=== PATIENT | female | born 1985 | race African-American/Black ===

== ENCOUNTER 2022-08-16 13:17 | Inpatient (IN) | payer OTHER, SELFPAY ==
[2022-08-16] VITALS (42 sets, daily range): BP systolic 121–152; BP diastolic 68–115; PULSE 76–115; RESP 16–18; TEMP 36.8–36.9; O2SAT 94–100; BMI 35.3
--- NOTE | ~2022-08-16 | US_ITS ---
EXAMINATION: US OB limited DATE: 08/16/2022 15:07 INDICATION: Prolapsed umbilical cord. TECHNIQUE: Real-time ultrasound of the pelvis was performed. COMPARISON: None. FINDINGS: There is a single fetus in breech presentation. The placenta is fundal and anterior. heart mot ion is not identified on M-mode Doppler. The amniotic fluid index is 0 cm. IMPRESSION: 1. demise. Reviewed, dictated and finalized at location A. TELEMETRY IMPRESSION: 1. demise.
--- NOTE | 2022-08-16 14:14 | ED.PREGNANCY ---
HPI - General Chief complaint: Vaginal Bleeding <Gali Harrison PA-C - Last Filed: 08/16/22 15:38> Stated complaint: 17 Weeks <Gali Harrison PA-C - Last Filed: 08/16/22 15:38> Time Seen by Provider: 08/16/22 13:41 <Gali Harrison PA-C - Last Filed: 08/16/22 15:38> History of Present Illness HPI Narrative: 36-year-old female reports for passing tissue through her vagina 2 hours ago. She is currently 17-1/2 weeks . Patient states she was going to the bathroom while at work and noticed that she had tissue hanging out of her vagina. She denies having any abdominal pain, cramping, vaginal bleeding, back pain, fever, headache, dizziness, vision changes. States that she was seen on August 11 by her OUTSIDE PARTS SALESMAN at [facility], had an ultrasound which confirmed IUP. States she has had no complications with this so far. No history of complications with previous pregnancies. All previous pregnancies were delivered vaginally at full-term. She is currently taking aspirin and a multivitamin. <Gali Harrison PA-C - Last Filed: 08/16/22 15:38> Related Data Home medications: Home Medications Medication Instructions Recorded Confirmed aspirin 81 mg chewable tablet 81 mg DAILY 08/16/22 08/16/22 vits 75-iron 28 mg-folic 1 pkg PO DAILY 08/16/22 08/16/22 acid 800 mcg-omega3 440 mg oral pack <Gali Harrison PA-C - Last Filed: 08/16/22 15:38> Allergies/Adverse reactions: Allergies Allergy/AdvReac Type Severity Reaction Status Date / Time Sulfa (Sulfonamide Allergy Unknown Unknown Verified 08/16/22 13:31 Antibiotics) <Gali Harrison PA-C - Last Filed: 08/16/22 15:38> Review of Systems Review of Systems: CONSTITUTIONAL: Denies fever, chills, or sweats. EYES: Denies visual changes CARDIOVASCULAR: Denies chest pain, palpitations, or edema. RESPIRATORY: Denies cough or dyspnea. GASTROINTESTINAL: Denies abdominal pain, nausea, vomiting, or diarrhea. GENITOURINARY: Denies dysuria or hematuria. See HPI. SKIN: Denies rash or itching. MUSCULOSKELETAL: Denies back pain, joint pain, or myalgia. NEUROLOGIC: Denies headache, numbness, dizziness, or weakness. <Gali Harrison PA-C - Last Filed: 08/16/22 15:38> PMFSH Social History Social History: Social History Smoking status: Never smoker Second hand tobacco smoke exposure: No Spiritual care concerns: No <Gali Harrison PA-C - Last Filed: 08/16/22 15:38> Exam Narrative: GENERAL: Well-appearing, well-nourished, and in no acute distress. Tearful on exam. HEAD: Normocephalic, atraumatic. NECK: Supple. CHEST: Clear to auscultation. No respiratory distress. No wheezes rales or rhonchi HEART: Regular rate and rhythm. No murmur heard. Normal peripheral pulses. ABDOMEN: Soft, nontender, nondistended, normal active bowel sounds. RESTAURANT HOURLY MANAGER: Visual inspection demonstrates ~2 inches of looped prolapsed umbilical cord extending from the vagina. No blood or other tissue visualized. EXTREMITIES: Normal range of motion. No edema. SKIN: Warm, dry, no rash. NEURO: Alert and oriented x3. PSYCH: Tearful <Gali Harrison PA-C - Last Filed: 08/16/22 15:38> Course Course Emergency Course: Case discussed with Dr. Littlejohn after initial history taken. Dr. Littlejohn and I visualized the prolapsed cord together and attempted to find heart tones with Doppler without success. Dr. Littlejohn performed a bedside ultrasound and did not see any heart movement. 1430: Called Dr. Dow and gave report on patient's case. She is going to come to the ED and speak with the patient. Advised me to order a formal ultrasound in the meantime. OB ultrasound ordered. <Gali Harrison PA-C - Last Filed: 08/16/22 15:38> MEDICAL RECORD TRANSCRIBER/PA Physician Supervision For this patient encounter, I reviewed the MEDICAL RECORD TRANSCRIBER or PA documentation, eliana
--- NOTE | 2022-08-16 15:24 | PM.IMHP ---
H&P: HPI History of Present Illness Date/Time: 08/16/22 15:24 Chief Complaint: Passing tissue Narrative: Patient is a at 17 weeks by EDC January 21. She presented to ED after noticing passing some tissue while at work today. Denies LOF. Denies contractions. She has had one visit in [place]. She has had prior term vaginal deliveries, denies h/o labor or cervical incompetence. Denies flu like symptoms, or fevers or chills. States has had increase discharge for a week. In ED cord was visualized in vagina. Bedside ultrasound done in ED and no cardiac activity detected. Formal ultrasound also confirmed IUFD. Review of Systems Review of Systems: All systems reviewed & are unremarkable except as noted in HPI and below Constitutional: Constitutional: Reports as per HPI Eyes: Eyes: Reports no additional eye complaints ENT: Reports system reviewed and no additional complaints, except as documented Cardiovascular: Cardiovascular: Reports no additional cardiovascular complaints Respiratory: Respiratory: Reports no additional respiratory complaints Gastrointestinal: Gastrointestinal: Reports no additional gastrointestinal complaints Genitourinary: Genitourinary: Reports no additional female genitourinary complaints Musculoskeletal: Musculoskeletal: Reports no additional musculoskeletal complaints Psychiatric: Psychiatric: Reports no additional psychiatric complaints Meds Home Medications and Allergies Allergies Allergy/AdvReac Type Severity Reaction Status Date / Time Sulfa (Sulfonamide Allergy Unknown Unknown Verified 08/16/22 13:31 Antibiotics) Vital Signs Vital Signs - 24 hr 08/16/22 13:22 Temperature 98.4 F Pulse Rate 115 H Respiratory Rate 16 Blood Pressure 152/88 H Pulse Oximetry 100 Exam Const: General: cooperative, alert and awake Orientation/consciousness: oriented to person, oriented to place and oriented to time HENMT: Head: normal to inspection Eyes: General: appearance normal, both eyes and all related structures Neck: Neck: normal visual inspection Resp: Effort & Inspection: normal respiratory effort Auscultation: clear to auscultation bilaterally Cardio: Rate: regular rate Rhythm: regular rhythm GI: Inspection: normal to inspection Other: fundus 4 below umbilicus nontender : External Female Exam: normal external appearance Speculum Exam - Vagina: normal appearance of the vagina and Abnormal introitus (cord in vagina) Speculum Exam - Cervix: Other cervical findings present (cervix visually approx 2 cm parts not palpable) Skin: General skin exam: normal color Assessment and Plan Assessment and plan (1) demise: Status: Acute Assessment and Plan: Inevitable miscarriage. Admit. Discussed risk of infection and recommendation for delivery via medical induction versus evacuation. Discussed risk benefits of induction vs evacuation. Risk of retained placenta, infection, need for emergency surgery, hysterectomy, ICU admission. Offered to call her provider if she prefers treatment with them, she declines. She prefers to stay here and opts for induction of labor. She states she has had one visit with the provider. Will obtain demise labs and discuss with her r if she wants autopsy, chromosomal testing.
[2022-08-16] MEDS: fentaNYL CITRATE INJ (*CRX) 100 MCG/2 ML VIAL 50 MCG IV PUSH (15:59)
[2022-08-16 16:17] LABS: Basophils Percent Auto 0.2 % (0.2-1.2); Eosinophils Absolute Auto 0.3 K/mm3 (0-0.3); Eosinophils Percent Auto 3.2 % (0-4.4); Hematocrit 38.3 % (37.0-47.0); Hemoglobin 12.9 g/dL (12.0-15.0); Immature Granulocyte Absolute 0.04 K/mm3 (0.00-0.031); Immature Granulocyte Percent A 0.5 % (0-0.5); Lymphocytes Absolute Auto 1.58 K/mm3 (0.9-3.2); Lymphocytes Percent Auto 18.7 % (18.3-44.2); Mean Corpuscular HGB Conc 33.7 g/dl (32-36); Mean Corpuscular Hemoglobin 30.1 pg (26-34); Mean Corpuscular Volume 89.3 fl (80-100); Mean Platelet Volume 8.9 fl (7.4-10.4); Monocytes Absolute Auto 0.8 K/mm3 (0.1-0.6); Monocytes Percent Auto 9.6 % (2.6-8.5); Neutrophils Absolute Auto 5.7 K/mm3 (1.3-6.7); Neutrophils Percent Auto 67.8 % (45.5-73.1); Platelet Count Result 294 k/mm3 (150-375); Red Blood Count 4.29 M/mm3 (4.2-5.4); Red Cell Distribution Width 12.8 % (11.5-14.5); White Blood Count 8.4 K/mm3 (4.5-10.0)
[2022-08-16 16:31] LABS: Alanine Aminotransferase 17 U/L (6-35); Albumin Level 4.3 g/dL (3.5-5.1); Alkaline Phosphatase 67 U/L (38-126); Anion Gap 5 mmol/L (8-16); Aspartate Amino Transferase 22 U/L (14-36); Bilirubin,Total 0.3 mg/dL (0.2-1.3); Blood Urea Nitrogen 5 mg/dL (7-17); Calcium 9.5 mg/dL (8.4-10.2); Carbon Dioxide 28 mmol/L (22-30); Chloride 101 mmol/L (98-107); Estimated CRCL calculation 164 ml/min; Estimated Glomerular Filt Rate > 60; Glucose 107 mg/dL (65-110); Potassium 4.1 mmol/L (3.4-5.0); Sodium 134 mmol/L (137-145)
[2022-08-16 16:53] LABS: Influenza A QL RT-PCR Negative (Negative); Influenza B QL RT-PCR Negative (Negative); RSV RNA, RT-PCR Negative (Negative); SARS-CoV-2 RNA PCR Negative
[2022-08-16] MEDS: miSOPROStol 200 MCG TABLET 600 MCG VAGINAL ×2 (18:40→22:46)
[2022-08-16 19:09] LABS: Thyroid Stimulating Hormone 0.262 uIU/mL (0.465-4.680)
[2022-08-16 19:19] LABS: HIV 1/2 Ab P24 Ag Result Negative (Negative)
[2022-08-16 19:20] LABS: Free T4 Free Thyroxine 1.04 ng/mL (0.78-2.19)
[2022-08-16] MEDS: fentaNYL CITRATE INJ (*CRX) 100 MCG/2 ML VIAL IV PUSH ×2 (22:44→23:59)
[2022-08-17] VITALS (51 sets, daily range): BP systolic 88–142; BP diastolic 50–83; PULSE 87–111; RESP 15–20; TEMP 36.6–36.8; O2SAT 90–100
--- NOTE | 2022-08-17 00:40 | PM.OBPRVD ---
OB - Delivery Note Procedure Delivery date: 08/16/22 Procedure: Spontaneous vaginal delivery Events: Other Induction method: Other (cytotec) Route of delivery: Narrative: Patient admitted from ED for demise at 17 weeks. Labs obtained. IV started. She 2 doses of 600ug cytotec, last dose at 2240. Baby delivered spontaneously at 2340. Odor noted. Fetus examined. Mildly macerated. Placenta remained in utero. She started having moderate bleeding. On exam, portion of placenta at os, placenta grasped with ring forceps, portion of placenta was grasped x 2. There still was moderate tissue in lower uterine segment and moderate bleeding. She was recommended for currettage in OR. Discussed risk/benefits of curettage and risk of not performing procedure. She agreed to procedure. 600mcg of cytotec placed vaginally. Will start IV antibiotics. Baby Weeks of gestation at delivery: 17
--- NOTE | 2022-08-17 00:47 | WPDANESEPPF ---
Anes - Initial Pre Proc Eval Procedure: Hysteroscopy D&C Date/Time: 08/17/22 00:47 Surgeon: Sam Dow MD Pre Op Diagnosis: Demise, Retained placental products Pre Op Diagnosis: Demise Patient Data Age: 36 Gender: F Height: 1.57 m Weight: 87.6 kg Last Vital Signs Temp 36.8 C 08/16/22 17:30 Pulse 93 08/17/22 00:46 Resp 18 08/16/22 16:25 BP 135/70 08/17/22 00:46 Pulse Ox 96 08/17/22 00:44 O2 Del Method Room Air 08/16/22 17:25 Allergies Allergy/AdvReac Type Severity Reaction Status Date / Time Sulfa (Sulfonamide Allergy Unknown Unknown Verified 08/16/22 13:31 Antibiotics) Home Medications Medication Instructions Recorded Confirmed Type aspirin 81 mg chewable tablet 81 mg DAILY 08/16/22 08/16/22 History vits 75-iron 28 mg-folic 1 pkg PO DAILY 08/16/22 08/16/22 History acid 800 mcg-omega3 440 mg oral pack Laboratory Tests 08/16/22 08/16/22 08/16/22 16:11 16:12 16:12 WBC 8.4 K/mm3 K/mm3 (4.5-10.0) RBC 4.29 M/mm3 M/mm3 (4.2-5.4) Hgb 12.9 g/dL g/dL (12.0-15.0) Hct 38.3 % % (37.0-47.0) MCV 89.3 fl fl (80-100) MCH 30.1 pg pg (26-34) MCHC 33.7 g/dl g/dl (32-36) RDW 12.8 % % (11.5-14.5) Plt Count 294 k/mm3 k/mm3 (150-375) MPV 8.9 fl fl (7.4-10.4) Immature Gran % (Auto) 0.5 % % (0-0.5) Neut % (Auto) 67.8 % % (45.5-73.1) Lymph % (Auto) 18.7 % % (18.3-44.2) [place] % (Auto) 9.6 % H % (2.6-8.5) Eos % (Auto) 3.2 % % (0-4.4) Baso % (Auto) 0.2 % % (0.2-1.2) Lymph # (Auto) 1.58 K/mm3 K/mm3 (0.9-3.2) [place] # (Auto) 0.8 K/mm3 H K/mm3 (0.1-0.6) Eos # (Auto) 0.3 K/mm3 K/mm3 (0-0.3) Baso # (Auto) 0.0 K/mm3 K/mm3 (0.0-0.1) Abs Immat Gran (auto) 0.04 K/mm3 H K/mm3 (0.00-0.031) Absolute Neuts (auto) 5.7 K/mm3 K/mm3 (1.3-6.7) Absolute Nucleated RBC 0.0 K/mm3 K/mm3 (0.0-0.012) Nucleated RBC % 0.0 % % (0.0-0.2) LA PTT Screen dRVVT Screen dRVVT Additional Test Lupus Anticoag Interp Sodium 134 mmol/L L mmol/L (137-145) Potassium 4.1 mmol/L mmol/L (3.4-5.0) Chloride 101 mmol/L mmol/L (98-107) Carbon Dioxide 28 mmol/L mmol/L (22-30) Anion Gap 5 mmol/L L mmol/L (8-16) BUN 5 mg/dL L mg/dL (7-17) Creatinine 0.40 mg/dL L mg/dL (0.7-1.0) Estim Creat Clear Calc 164 ml/min ml/min Estimated GFR > 60 (59 - ) Glucose 107 mg/dL mg/dL (65-110) Calcium 9.5 mg/dL mg/dL (8.4-10.2) Total Bilirubin 0.3 mg/dL mg/dL (0.2-1.3) AST 22 U/L U/L (14-36) ALT 17 U/L U/L (6-35) Alkaline Phosphatase 67 U/L U/L (38-126) Total Protein 8.0 g/dL g/dL (6.3-8.2) Albumin 4.3 g/dL g/dL (3.5-5.1) TSH Free T4 Beta-2-GPI IgG Ab Beta-2-GPI IgA Ab Beta-2-GPI IgM Ab Anti-Cardiolipin IgG Ab Anti-Cardiolipin IgA Ab Anti-Cardiolipin IgM Ab RPR CMV IgG Ab CMV IgM Ab HIV 1&2 Ab/P24 Ag 4thGn Influenza A (RT-PCR) Negative (Negative) Influenza B (RT-PCR) Negative (Negative) RSV (RT-PCR) Negative (Negative) SARS-CoV-2 RNA (RT-PCR) Negative Blood Type Antibody Screen KB Hemoglobin 08/16/22 08/16/22 08/16/22 18:00 18:00 18:00 WBC RBC Hgb Hct MCV MCH MCHC RDW Plt Count MPV Immature Gran % (Auto) Neut % (Auto)
[2022-08-17] MEDS: AMPICILLIN 2 GM/NS 100 ML 2 GM/100 ML BAG IVPB ×2 (00:58→10:03)
[2022-08-17] MEDS: fentaNYL CITRATE INJ (*CRX) 100 MCG/2 ML VIAL IV PUSH (01:11)
[2022-08-17] MEDS: LACTATED RINGERS 1,000 ML 30 ML IV CONT (01:20)
[2022-08-17] MEDS: CLINDAMYCIN 900 MG/D5W 50 ML 900 MG/50 ML PIGGYBACK 50 MG IVPB ×2 (01:45→10:35)
[2022-08-17] MEDS: GENTAMICIN 60 MG/50 ML NS 60 MG/50 ML BAG 100 MG IVPB ×2 (01:52→11:15)
[2022-08-17 01:57] LABS: Amphetamine Screen Urine Negative (Negative); Barbiturate Screen Urine Negative (Negative); Benzodiazepines Screen Urine Negative (Negative); Cannabinoid Screen Urine Negative (Negative); Cocaine Screen Urine Negative (Negative); Methadone Screen Urine Negative (Negative); Opiate Screen Urine Negative (Negative); Phencyclidine Screen Urine Negative (Negative)
--- NOTE | 2022-08-17 02:17 | P.OP_ITS ---
Procedure Note - Detailed Date of Procedure 08/17/22 Pre-op Diagnosis Retained placenta Post-op Diagnosis Same Procedure Performed [facility] Surgeon Sam Dow MD Anesthesia General Indications Retained placenta status post delivery of demise Findings Large amount of placenta, no abnormalities palpated in uterine cavity at time of currettage Description of Procedure After informed consent was obtained patient was taken to OR. General endotracheal anesthesia was initiated. Bedside abdominal ultrasound performed and large amount placenta noted mid to lower cavity. Prior to being prepped and draped there was approximately 200cc blood on chux. She was prepped and draped in sterile fashion. Speculum inserted. Ring forceps placed on cervix which was dilated. Tissue in lower uterine segment grasped with ring forceps. Fundal pressure applied and larger tissue at lower uterus was grasped with ring forceps and what looked like most of placenta removed. The cavity was sharply curretted. Small amount of tissue obtained. The suction with a size 14 canula inserted twice and small amount of tissue removed. Cavity sharp curretted. No tissue palpated. Abdominal ultrasound was used and no intrauterine contents noted. Tenaculum removed. Hemostasis noted at site. Silver nitrate applied to an area at introitus that had some mild oozing. Hemostasis noted. Sponge count correct. Patient tolerated procedure. Estimated Blood Loss 250 Drains No Packing No Pathology Yes (bacterial swab performed on surface of placenta; placenta tissue) Complications No immediate complications Condition Stable Disposition PACU [facility] Billing Surgery - Charge Forward: Surgery Billing
--- NOTE | 2022-08-17 02:18 | PC.NURSE ---
0206 Air Quality Chemist called
--- NOTE | 2022-08-17 03:59 | PC.NURSE ---
LATE ENTRY 0130 PT TAKEN TO THE OR VIA STRETCHER WITH OR TEAM.
--- NOTE | 2022-08-17 04:00 | PC.NURSE ---
0308 PT RETURNS FROM OR VIA STRETCHER
[2022-08-17 07:00] LABS: Hematocrit 34.2 % (37.0-47.0); Hemoglobin 11.7 g/dL (12.0-15.0)
--- NOTE | 2022-08-17 15:45 | PC.NURSE ---
Fetus taken to lab/path with dispositions form.
[2022-08-18 05:56] LABS: Rapid Plasma Reagin Non-Reactive (NonReactive)
[2022-08-19 16:57] LABS: CMV IgM Antibody <30.00 AU/mL (<30.00)
[2022-08-20 16:03] LABS: CMV IgG Antibody >10.00 U/mL (<0.60)
[2022-08-20 19:15] LABS: Anti Cardio Antibody IgM <2.0 MPL-U/mL (<20.0); Anti Cardiolipin Antibody IgA <2.0 APL-U/mL (<20.0); Anti Cardiolipin Antibody IgG <2.0 GPL-U/mL (<20.0)
[2022-08-22 11:33] LABS: Lupus dRVVT Screen 40 sec (<=45); PTT-LA Screen 31 sec (<=40)
--- NOTE | 2022-08-22 11:42 | PM.OBDSVD ---
DS: Admitting Diagnosis Discharge Date 08/17/22 Admitting Diagnosis Inevitable miscarriage demise DS: Discharge Diagnosis Discharge Diagnosis (1) demise: Status: Acute (2) Retained placenta: Code(s): O73.0 - Retained placenta without hemorrhage Status: Acute OB - DS: Summary Hospital Course Hospital Course: She presented to ED with complaints of passing tissue. In ED membranes protruding through cervix. demise confirmed with ultrasound. She was informed of recommendation for induction of labor to delivery fetus. She had misoprostol and delivered a nonviable male fetus. Placenta remained in utero and there was moderate bleeding. She was taken for D and C and minimal bleeding after that procedure. She was discharged to home later that morning. She was hemodynamicly stable. Discharge precautions discussed. demise labs performed and were pending. OB Procedures : Other OB Procedures Intrapartum: Spontaneous Vag Delivery OB Procedures: : Curettage Peripartum Data Delivery Method: Natural Vaginal Procedures: Procedures Operation Date: 08/17/22 01:15 Actual Procedure Side Surgeon p D&C Suction and Sharp Not Applicable Sam Dow MD complications: retained placenta Time Spent with Patient Time attestation: Total time spent providing and/or coordinating discharge services: Exam Const: General: cooperative Orientation/consciousness: oriented to person, oriented to place and oriented to time HENMT: Face/Nose/Sinus: Normal external nose present Eyes: General: appearance normal, both eyes and all related structures Resp: Effort & Inspection: normal respiratory effort GI: Inspection: normal to inspection Skin: General skin exam: normal color Neuro: General: oriented to person, oriented to place and oriented to time Extrem: General: normal to inspection and no calf tenderness Psych: Appearance: grossly normal Mental Status: mental status grossly normal DS: Data Data Completed and Pending Completed studies during hospitalization: Pending at discharge 08/17/22 02:05 Cytology [PTH] Routine Surgical [PTH] Routine Surgical [PTH] Routine Labs on day of discharge: Labs from last 24 hours 08/16/22 18:00 LA PTT Screen 31 dRVVT Screen 40 Lupus Anticoag Interp see below Preliminary micro results at discharge 08/17/22 01:58 Anaerobic Culture - Preliminary Other Discharge Plan Discharge Attending physician on discharge: Sam Dow Consulting providers: Salvador Brambila ; Ppee Kim V. ; Vonda Rios Discharging Clinician: Sam Dow Anticipated Discharge Date/Time: 08/17/22 10:35 Patient Disposition: Home, Self-Care Activity: may shower, as tolerated and pelvic rest Diet: regular Discharge Instructions: Follow-Up: Call your Provider's office for an appointment to be seen in: Return to [facility] for a follow-up visit: Appointment Date/Time: at What to expect at your follow-up visit: Call [phone] if you are unable to keep your appointment time. EPISIOTOMY/PERINEAL CARE: * Until bleeding stops, use your siria bottle after urinating * Change your pad frequently throughout the day * You may take sitz baths several times a day (fill your bathtub with warm water and soak for 20 minutes.) Do NOT bathe in the water * No tub baths until seen by your physician - You may shower BLEEDING: * Each individual will experience vaginal bleeding, but it will vary with each situation and individual woman. * Vaginal bleeding will go thru cycles-from bright red, to pinkish to a white, creamy discharge. This is considered normal. You may also experience a brownish discharge which is also normal. DIET AND NUTRITION: * Eat at least 3 regular, well-balanced meals per day: include all 4 food groups daily. * You may pref
== END 2022-08-17 15:41 | disposition home or self-care (01) | DRG 541 ==
LOC: ANHED 15:30 → ANHLDR 15:35
PROVIDERS: Admitting Provider Obstetrics & Gynecology; Emergency Provider Emergency Medicine; Visit Provider Obstetrics & Gynecology
PROC: 10D17ZZ Extraction of Products of Conception, Retained, Via Natural or Artificial Opening (ICD-10-PCS; principal; 2022-08-17 01:15)
DX: O02.1 Missed abortion (principal); O72.0 Third-stage hemorrhage; Z20.822 Contact with and (suspected) exposure to COVID-19; Z3A.17 17 weeks gestation of pregnancy
CPT/HCPCS: 36415; 76815; 80053; 80307; 84439; 84443; 85014; 85018; 85025; 85460; 85613; 85730; 86146; 86147; 86592; 86644; 86645; 86703; 86850; 86900; 86901; 87070; 87075; 87205; 87637; 88233; 88262; 88305; 88307; 96374; 99285; A9270; G0378; G0379; G0432; J0290; J1580; J2210; J2250; J2270; J3010; J7120